=== PATIENT | female | born 2000 | race Caucasian/White ===

== ENCOUNTER 2021-03-27 01:26 | Emergency (ER) | payer MEDICAID, OTHER ==
[~2021-03-27] VITALS: Ht 164 cm; Wt 45.4 kg
[2021-03-27 01:36] VITALS: BP 124/80
--- NOTE | 2021-03-27 01:39 | ED EENT ---
History of Present Illness General Chief Complaint: Facial Problems Stated Complaint: HEAD INJURY History of Present Illness Date Seen by Provider: Mar 27, 2021 Time Seen by Provider: 01:38 Initial Comments 20 y/o female presents w facial injury secondary to a section of ceiling in her home (spontaneously) falling off and landing on her face. No previous occurrence of falling ceiling sections in the past. No other injury or complaint. No loss of consciousness. Only facial injury, not head injury. Allergies and Home Medications Allergies Coded Allergies: No Known Drug Allergies (Unverified , 03/27/21) Patient Home Medication List Home Medication List Reviewed: Yes Review of Systems Review of Systems Constitutional: No dizziness, No fever, No malaise, No weakness Eyes: No Symptoms Reported, See HPI; Denies Blurred Vision; Pain (facial- under right eye) Ears: No Symptoms Reported Nose: congestion, epistaxis, pain Mouth: no symptoms reported Throat: no symptoms reported Respiratory: No cough, No short of breath Musculoskeletal: No back pain, No joint pain, No neck pain Skin: see HPI Neurological: Denies Headache, Denies Numbness, Denies Paresthesia, Denies Seizure Past Suppsnb-Fnhqgh-Pmtplt Hx Past Med/Social Hx: Reviewed Nursing Past Med/Soc Hx Physical Exam Vital Signs Vital Signs - First Documented 03/27/21 01:36 Temp 36.7 Pulse 75 Resp 19 B/P (MAP) 124/80 (95) O2 Delivery Room Air Height, Weight, BMI Height: '" Weight: lbs. oz. kg; BMI Method: General Appearance: WD/WN, no apparent distress Eyes: bilateral eye PERRL, bilateral eye EOMI Ears: bilateral ear auricle normal, bilateral ear canal normal, bilateral ear TM normal Nose: No active bleeding, No discharge; dried blood; No foreign body, No sinus tenderness Mouth/Throat: normal mouth inspection Neck: non-tender, supple Neurologic/Psychiatric: no motor/sensory deficits, alert, normal mood/affect, oriented x 3 Skin: other (facial laceration- infraorbital to right eye and right lateral bridge of nose- contused and stellate) Procedures/Interventions Wound Location: Face Wound Length (cm): 2 Wound's Depth, Shape: irregular, stellate, contused tissue Wound Explored: clean Other Closure Supply: Wound Adhesive Sterile Dressing Applied?: No Progress/Results/Core Measures Results/Orders Vital Signs/I&O 03/27/21 01:36 Temp 36.7 Pulse 75 Resp 19 B/P (MAP) 124/80 (95) O2 Delivery Room Air Departure Impression Primary Impression: Facial laceration Qualified Codes: S01.81XA - Laceration without foreign body of other part of head, initial encounter Additional Impression: Contusion of face Qualified Codes: S00.83XA - Contusion of other part of head, initial encounter Disposition: HOME, SELF-CARE Condition: Stable Departure-Patient Inst. Referrals: ALLIE BRONSON MD (PCP/Family) Primary Care Physician Patient Instructions: Laceration Repair With Glue (DC) Add. Discharge Instructions: follow up with Dr BRONSON in a few days for any concerns or sign of infection All discharge instructions reviewed with patient and/or family. Voiced understanding. SUBHA MCINTYRE DO Mar 27, 2021 01:38
[2021-03-27] MEDS ORDERED: L.E.T. SOLUTION 3 ML SYR ONE (01:57)
[2021-03-27] MEDS ORDERED: L.E.T. SOLUTION 3 ML SYR TOP ONE (02:00)
== END 2021-03-27 02:37 | disposition home or self-care (01) ==
LOC: ER FS 01:30
DX: S01.81XA Laceration without foreign body of other part of head, initial encounter (principal); W20.8XXA Other cause of strike by thrown, projected or falling object, initial encounter
CPT/HCPCS: 99283

== ENCOUNTER → 2021-03-27 | Outpatient (CLI) | payer MEDICAID ==
--- NOTE | 2021-03-27 15:42 | Diagnostic Imaging Report ---
PROCEDURE: CT head without contrast. TECHNIQUE: Multiple contiguous axial images were obtained through the brain without the use of intravenous contrast. Auto Exposure Controls were utilized during the CT exam to meet ALARA standards for radiation dose reduction. INDICATION: Head trauma and headache. No prior studies are available for comparison. Ventricles and sulci are within normal limits. No sulcal effacement or midline shift is identified. No acute intra-axial or extra-axial hemorrhage is detected. There is a small amount of fluid in the left maxillary sinus. There appears to be a slightly medially displaced right nasal bone fracture with soft tissue swelling over the right side nasal tissues as well as minimal amount of subcutaneous gas. IMPRESSION: 1. No acute intracranial process is detected. 2. Right nasal bone fracture with slight medial displacement and overlying subcutaneous gas. Dictated by: Dictated on workstation # [id number]
== END ==
LOC: RAD FS 15:24
PROVIDERS: ATTEND Family Medicine
DX: S02.2XXA Fracture of nasal bones, initial encounter for closed fracture (principal); S09.90XA Unspecified injury of head, initial encounter; G44.319 Acute post-traumatic headache, not intractable; X58.XXXA Exposure to other specified factors, initial encounter
CPT/HCPCS: 70450

== ENCOUNTER → 2023-03-11 | Outpatient (CLI) | payer MEDICAID ==
[~2023-03-11] MED LIST: CATHETER FLUSH 10 ML SYR IVP PRN
--- NOTE | 2023-03-11 12:14 | Diagnostic Imaging Report ---
INDICATION: Right upper quadrant pain. TECHNIQUE: Acquisitions were acquired of the abdomen after administration of 5.44 mCi of technetium 99m Choletec. Ejection fraction was calculated after the patient drank Ensure followed by an additional 60 minutes of imaging. FINDINGS: There is homogeneous uptake of isotope throughout the liver. Free flow of activity in the small bowel. Significant activity within the gallbladder by 60 minutes. Ejection fraction was calculated to be 53%. IMPRESSION: Normal hepatobiliary scan and ejection fraction. Dictated by: Dictated on workstation # [id number]
== END ==
LOC: CARD 09:19
PROVIDERS: ATTEND Family Medicine
DX: R11.0 Nausea (principal)
CPT/HCPCS: 78227

== ENCOUNTER → 2023-07-22 | Outpatient (CLI) | payer MEDICAID ==
[~2023-07-22] MED LIST changes: +BARIUM for suspension 96% w/w (Vanilla Silq Medium Density) PO ONE; +BARIUM for suspension 98% w/w (Vanilla Silq High Density) PO ONE; -CATHETER FLUSH 10 ML SYR IVP PRN
--- NOTE | 2023-07-22 15:59 | Diagnostic Imaging Report ---
INDICATION: Nausea. Patient ingested effervescent crystals as well as thin and thick barium and imaging of the esophagus was performed at multiple obliquities. 42 seconds of fluoroscopic time was utilized. Reference air kerma 7.6 mGy. 28 images were obtained. Preliminary radiograph of the chest is unremarkable. The esophagus has a smooth contour. No mass or stricture is identified. No hiatal hernia or gastroesophageal reflux was demonstrated. Images of the stomach are unremarkable. IMPRESSION: Unremarkable air-contrast barium esophagram. Dictated by: Dictated on workstation # [id number]
== END ==
LOC: RAD 08:00
PROVIDERS: ATTEND Family Medicine
DX: R11.0 Nausea (principal)
CPT/HCPCS: 74220